=== PATIENT | female | born 1990 | race Caucasian/White ===

== ENCOUNTER 2017-03-08 11:32 | Emergency (ER) | payer OTHER ==
--- NOTE | ~2017-03-08 | CR63 ---
[facility] A Service of [facility] & [facility] RADIOLOGY TEXT RESULTS PATIENT: SEKOU JANSEN LOCATION: SED : 86 UNIT #: [id number] AGE: [address]: Huey Raza MD SEX: F ORDER DR: [id number] [address] [address] [id number] E MR#: [id number] Acc #: [id number] NAME: SEKOU JANSEN : 1990 SEX: F STUDY DATE/TIME: 03/08/2017 12:16 UNIT: SED ROOM: STUDY DESCRIPTION: CR Chest 2 View Attending Physician: Huey Raza M.D. Ordering Physician: Huey Raza M.D. Primary Care Physician: Primary Care Physician No MEDICAL IMAGING REPORT This report is preliminary unless electronic signature is present. EXAM PA and lateral chest DATE: 03/08/2017 HISTORY 26-year-old female with pain under the left breast since this morning. Shortness of breath. Asthma. 16-year smoking history. COMPARISON PA and lateral chest 12/25/2016. FINDINGS Clear lungs. Normal heart size. No pleural effusion or pneumothorax or acute osseous abnormality. Bilateral nipple jewelry in place. IMPRESSION 1. No acute cardiopulmonary findings. Dictated by... Abby Gallegos M.D. THIS IS AN ELECTRONICALLY VERIFIED REPORT Abby Gallegos M.D. at 03/09/2017 7:04 AM [facility]/isabel TD: 03/08/2017 14:07 JOB #: [id number] MEDICAL IMAGING REPORT Page 1 of 1
[~2017-03-08 11:32] MED LIST: ALBUTEROL17 GM INH; ALKA-SELTZER P1 EAC1; AZITHROMYCIN250 MG PO; BACTRIM DS TABL1 TA1 PO; BENADRYL25 M3 PO; BENTYL20 M1 PO; CIPRO PO; CLINDAMYCIN HC300 MG PO; DEXAMETHASONE4 MG PO; E.E.S. 400400 MG PO; FLAGYL PO; FLEXERIL10 MG PO; IBUPROFEN600 MG PO; IBUPROFEN800 MG PO; KEFLEX500 M1 PO; LORTAB 5/500 TA1 TA1 PO; NO MEDICATIONS; PERCOCET PO; PHENERGAN25 MG PO; PREDNISONE PO; PRENATAL VITAMI1 TA3 PO; PROMETH-CODEIN 65 ML PO; PROMETHAZINE D118 ML PO; PYRIDIUM PO; STERAPRED5 MG/DOSE1 PO; TAMIFLU75 M1 PO; TYLENOL #3 PO; VICODIN 5-3001 EACH PO; VOLTAREN75 MG PO; ZOFRAN ODT4 MG DOB; ZOFRAN ODT4 MG/UDTAB PO
== END 2017-03-08 13:44 | disposition home or self-care (01) ==
LOC: SED 11:32
DX: M94.0 Chondrocostal junction syndrome [Tietze] (principal); F17.200 Nicotine dependence, unspecified, uncomplicated; Z88.0 Allergy status to penicillin; Z91.013 Allergy to seafood; X58.XXXA Exposure to other specified factors, initial encounter; Y92.009 Unspecified place in unspecified non-institutional (private) residence as the place of occurrence of the external cause
CPT/HCPCS: 71020; 99283

== ENCOUNTER 2017-07-04 10:23 | Emergency (ER) | payer OTHER | END 2017-07-04 11:01 | disposition home or self-care (01) | LOC: SED 10:23 | DX: L03.114 Cellulitis of left upper limb (principal); T78.49XA Other allergy, initial encounter; J45.909 Unspecified asthma, uncomplicated; Z88.0 Allergy status to penicillin; Z23 Encounter for immunization | CPT/HCPCS: 90471; 90715; 99282 ==